=== PATIENT | male | born 1955 | race Caucasian/White ===

== ENCOUNTER → 2017-04-04 | Outpatient (CLI) | payer OTHER ==
[~2017-04-04] MED LIST: AMARYL2 MG PO; ASPIRIN325 M1 PO; BIAXIN PO; CRESTOR10 MG PO; EFFIENT10 MG PO; GLUCOPHAGE500 MG PO; METOPROLOL TAR25 MG PO; MIRAPEX0.25 MG PO; NEXIUM PO; PHENERGAN VC W120 M1 PO
--- NOTE | ~2017-04-04 | US37 ---
[facility] A Service of [facility] RADIOLOGY TEXT RESULTS PATIENT: ARLEEN HERNANDEZ LOCATION: [facility] : 53 UNIT #: [id number] AGE: [address]: Serjio Cruz MD SEX: M ORDER DR: [id number] [facility] [address] [place], [place] [address] [id number] O MR#: [id number] Acc #: [id number] NAME: ARLEEN HERNANDEZ. : 1955 SEX: M STUDY DATE/TIME: 04/04/2017 9:06 UNIT: [facility] ROOM: STUDY DESCRIPTION: US Carotid W/Doppler Bilateral Attending Physician: Kane Cruz M.D. Referring Physician: Kane Cruz M.D. Ordering Physician: Kane Cruz M.D. Primary Care Physician: Rebekah Purvis M.D. MEDICAL IMAGING REPORT This report is preliminary unless electronic signature is present EXAM Carotid Doppler INDICATION Left upper extremity numbness for 10 years. Patient does have a history of diabetes and heart disease and evidently was noted to have a bruit on physical exam. TECHNIQUE Bilateral carotid ultrasound examination is performed using santacruz-scale, spectral Doppler, and color-flow Doppler imaging. Carotid flow was assessed using standards based on NASCET methodology. FINDINGS Ultrasound examination of the carotid arteries shows diffuse plaque bilaterally extending from the common carotid artery into the bulb and into the internal and external carotid arteries. Doppler evaluation shows normal flow velocities and normal Doppler waveforms within the carotid and vertebral arteries bilaterally. Peak systolic internal carotid artery flow velocities measure up to 63 cm/sec on the right and 77 cm/sec on the left. There is no evidence of significant carotid stenosis in the neck. IMPRESSION Mild carotid disease. No Doppler ultrasound evidence of flow-limiting or clinically significant carotid stenosis. Dictated by... Silvia Vargas M.D. THIS IS AN ELECTRONICALLY VERIFIED REPORT Silvia Vargas M.D. at 04/05/2017 9:46 AM AFF/aa [facility] A Service of [facility] RADIOLOGY TEXT RESULTS PATIENT: ARLEEN HERNANDEZ LOCATION: [facility] #: [id number] : 53 UNIT #: [id number] AGE: [address]: Serjio Cruz MD SEX: M ORDER DR: TD: 04/04/2017 15:45 JOB #: [id number] MEDICAL IMAGING REPORT Page 1 of 1 COPY
--- NOTE | ~2017-04-04 | US10 ---
[id number] [facility] [address] [place], [place] [address] [id number] O MR#: [id number] Acc #: [id number] NAME: ARLEEN HERNANDEZ : 1955 SEX: M STUDY DATE/TIME: 04/04/2017 9:19 UNIT: [facility] ROOM: STUDY DESCRIPTION: US Aorta Complete Attending Physician: Kane Cruz M.D. Referring Physician: Kane Cruz M.D. Ordering Physician: Kane Cruz M.D. Primary Care Physician: Rebekah Purvis M.D. MEDICAL IMAGING REPORT This report is preliminary unless electronic signature is present EXAM Ultrasound of the abdominal aorta 04/04/2017 INDICATIONS 61-year-old male with an abdominal bruit. History of cardiac stents, hypertension, hyperlipidemia, diabetes. Abdominal bruit for a month. Hyperlipidemia. Diabetes diagnosed several years ago. Alston-scale, color Doppler and spectral analysis of the abdominal aorta was performed. No relevant comparisons. FINDINGS There is no evidence of abdominal aortic aneurysm. The aorta demonstrates appropriate waveforms. Maximum diameter is approximately 2 cm in the proximal aorta. Visualized iliac arteries appear within normal limits. IMPRESSION Negative study. No abdominal aortic aneurysm. Dictated by... Aaron Abraham M.D. THIS IS AN ELECTRONICALLY VERIFIED REPORT Aaron Abraham M.D. at 04/04/2017 5:03 PM Geoff TD: 04/04/2017 15:16 JOB #: [id number] MEDICAL IMAGING REPORT Page 1 of 1 COPY
== END | disposition home or self-care (01) ==
LOC: CGUS 08:10
DX: R09.89 Other specified symptoms and signs involving the circulatory and respiratory systems (principal); I77.89 Other specified disorders of arteries and arterioles
CPT/HCPCS: 76770; 93880